=== PATIENT | female | born 1955 | race Caucasian/White ===

== ENCOUNTER 2017-07-05 11:01 | Inpatient (IN) ==
[~2017-07-05 11:01] MED LIST: Vancomycin 1,000 MG, Sodium Chloride IRRigation 1,000 ML IR ONE
[2017-07-05] MEDS ORDERED: *HR* Propofol 200 MG/20 ML VIAL IVP ONE (11:32)
[2017-07-05] MEDS ORDERED: Ondansetron 4 MG/2 ML VIAL ONE ×2 (11:33→18:21)
[2017-07-05] MEDS ORDERED: *HR* Midazolam HCl 2 MG/2 ML VIAL ONE (11:33)
[2017-07-05] MEDS ORDERED: *HR* Rocuronium Bromide 50 MG/5 ML VIAL ONE (11:33)
[2017-07-05] MEDS ORDERED: *HR* FentaNYL (PF) 100 MCG/2 ML VIAL ONE ×2 (11:33→18:20)
[2017-07-05] MEDS ORDERED: Dexamethasone 4 MG/ML VIAL ONE (11:33)
[2017-07-05] MEDS ORDERED: Lidocaine -MPF 2% 2 ML VIAL ONE (11:33)
[2017-07-05] MEDS ORDERED: Water for inj. (sterile) 10 ML IV ONE (11:39)
[2017-07-05] MEDS ORDERED: Ringers Solution, Lactated 1,000 ML IVC SCH (11:45)
[2017-07-05] MEDS ORDERED: Albuterol 2.5 MG/3 ML NEBULIZER IH ONE (11:45)
[2017-07-05] MEDS ORDERED: Lidocaine -MPF 1% 2 ML VIAL ID ONE (11:45)
--- NOTE | 2017-07-05 11:46 | Anesthesia Evaluation PreOp ---
Date of Encounter: 07/05/17 Time of Encounter: 11:44 - Past History Planned Operation: right leg graft thrombectomy possible revision Cardiac History: [place], HTN, Hyperlipidemia, Cardiac Surgery (CABG x 3 2007), Cardiac Stent (x 5 prior to CABG), Other (PVD, denies current chest pain) Pulmonary History: Smoker RD PROJECT MANAGER History: CVA (s/p carotid stenosis), Other (back pain) Other Medical History: Diabetes Type II (122) Anesthesia History: No Prior Anesthetic Complications : No Alcohol Use: none Drug use: none Medications and Allergies Clopidogrel [Plavix] 75 mg PO DAILY 10/13/15 [History] Lisinopril [Zestril] 5 mg PO DAILY 10/13/15 [History] Metformin HCl [Glucophage] 1,000 mg PO BID 10/13/15 [History] Metoprolol XL (24 HR) Succ [Toprol Xl] 25 mg PO DAILY 10/13/15 [History] Oxycodone HCl/Acetaminophen [Percocet 10-325 mg Tablet] 1 tab PO TID PRN [History] Potassium Chloride [K-Tab ER] 10 meq PO DAILY 10/13/15 [History] Simvastatin [Zocor] 40 mg PO HS 10/13/15 [History] diazePAM [Valium] 10 mg PO BID PRN 10/13/15 [History] hydroCHLOROthiazide [Hydrochlorothiazide] 12.5 mg PO DAILY 10/13/15 [History] Amlodipine Besylate 10 mg PO DAILY 01/27/16 [History] Aspirin 81 mg PO DAILY 01/27/16 [History] Docusate [Colace] 100 mg PO BID PRN 01/27/16 [History] FluocinoNIDE 0.05% CRM [Lidex] 1 appl TP BID 01/27/16 [History] Gabapentin [Neurontin] 800 mg PO TID 01/27/16 [History] Insulin ASPART [Novolog Flexpen] 6 - 10 unit SQ TID MDD per sliding scale [History] Insulin Glargine,Hum.rec.anlog [Lantus Solostar] 35 unit SQ BID 01/27/16 [ History] Isosorbide MONOnitrate (24 HR) [Imdur] 30 mg PO DAILY 01/27/16 [History] Acetaminophen [Tylenol] 650 mg PO Q6HR PRN #0 tablet 01/29/16 [Rx] OxyCODONE Immed Rel [Roxicodone 5 MG] 5 mg PO Q4H PRN #40 tablet 01/29/16 [Rx] HYDROcodone/Acet 5/325 mg [[place] 5-325 mg] 1 tab PO Q6H PRN 3 Days #10 tab 06/11 [Rx] Oxycodone HCl/Acetaminophen [Percocet 5-325 mg Tablet] 1 each PO Q6H PRN 3 Days #12 tablet 07/03/17 [Rx] 3 Allergy/AdvReac Type Severity Reaction Status Date / Time Sulfa (Sulfonamide Allergy Hives Verified 11/10/15 17:29 Antibiotics) sulfamethoxazole Allergy Hives Verified 11/10/15 17:29 [From Bactrim] trimethoprim [From Bactrim] Allergy Hives Verified 11/10/15 17:29 - Meds/Allergy Pre-op Review Medications Reviewed: Yes Allergies Reviewed: Yes Beta Blockers on Current Med List: Yes If Beta Blockers taken, Date/Time (Last Dose taken): 07/05/2017 0830 Anesthesia Results - Labs Laboratory Tests 06/14/17 07/04/17 07/04/17 09:39 16:33 16:33 WBC 11.8 H Hgb 13.6 Hct 41.1 Plt Count 177 PT 10.5 INR 1.0 APTT 30.5 Sodium 137 Potassium 3.4 L Chloride 101 Carbon Dioxide 30 H BUN 10 Creatinine 0.70 Est GFR (Non-Af Amer) > 60 Glucose 80 Hemoglobin A1c 07/04/17 16:33 WBC Hgb Hct Plt Count PT INR APTT Sodium Potassium Chloride Carbon Dioxide BUN Creatinine Est GFR (Non-Af Amer) Glucose Hemoglobin A1c 9.9 H - Imaging EKG: report reviewed Additional studies: Stress 02/2017 Impression: Study quality is average. There is GI uptake obscuring portions of the inferior segments. Pharmacologic stress ECG is non-diagnostic for ischemia due to baseline ST-T changes and submaximal HR. Gated EF = 57%. Perfusion imaging was negative for ischemia or infarct. Anesthesia Exam Vital Signs/O2 Sat/Glucose, Most Current Temp Pulse Resp BP Pulse Ox 07/05/17 11:24 98.1 F 57 18 158/67 98 Height: 1.6 m Weight: 58 kg NPO (# of Hours): greater than 8 - HEENT Pupil (Motor): Pupils equal Mallampati: I Denture Type: Upper: Complete - RD PROJECT MANAGER RD PROJECT MANAGER Motor: Normal RUE, Normal LUE, Normal RLE, Normal LLE, Normal Face RD PROJECT MANAGER Sensory: Normal: RUE, LUE, RLE, LLE, Face - Cardiac Rhythm: Regular Murmur: None - Pulmonary Breath Sounds: bilateral Clear Anesthesia Assess/Plan ASA Score: 3 Modified [place] Scale for Level of Consciousness: Cooperative, oriented, and tranquil Anesthetic Plan: General Monitoring Plan: Standard Monitors Recovery Plan: PACU
[2017-07-05] MEDS ORDERED: CeFAZolin Syr 2,000MG/20 ML 2,000 MG/20 ML SYRINGE IVPB ONE (11:50)
[2017-07-05] MEDS ORDERED: *HR* Heparin 5,000 UNIT/ML VIAL ONE ×2 (12:00→16:31)
[2017-07-05] MEDS ORDERED: *HR* Promethazine 25 MG/ML VIAL IVP PRN ×2 (12:30)
[2017-07-05] MEDS ORDERED: *HR* HYDROmorphone (PF) 1 MG/ML SYRINGE IVP PRN (12:30)
[2017-07-05] MEDS ORDERED: *HR* Meperidine 25 MG/ML SYRINGE IVP PRN (12:30)
[2017-07-05] MEDS ORDERED: *HR* Labetalol 20 MG/4 ML SYRINGE IVP PRN ×2 (12:30→19:58)
[2017-07-05] MEDS ORDERED: Ondansetron 4 MG/2 ML VIAL IVP ONE ×2 (12:30)
[2017-07-05] MEDS ORDERED: Dexamethasone 4 MG/ML VIAL IVP ONE (12:30)
[2017-07-05] MEDS ORDERED: Famotidine 20 MG/2 ML VIAL IVP ONE (12:35)
[2017-07-05] MEDS ORDERED: Acetaminophen IV 1,000 MG/100 ML INFUS..BTL IVPB ONE (12:35)
[2017-07-05] MEDS ORDERED: Gabapentin 300 MG CAPSULE PO ONE (12:35)
[2017-07-05] MEDS ORDERED: Heparin 1,000 UNITS/500 mL 1,000 ML ONE (13:54)
[2017-07-05] MEDS ORDERED: Vancomycin 1,000 MG VIAL ONE ×2 (13:54→17:59)
--- NOTE | 2017-07-05 14:19 | History & Physical Report ---
Date of Encounter: 07/05/17 Time of Encounter: 14:00 24 Hour HP Update - Instructions Instructions: If the History and Physical is less than 30 days old and was completed prior to A.M. admission and or procedure and has NOT been updated on calendar day of procedure please complete this update prior to performing procedure. - Update Patient reports changes in Medical Condition: No Changes in examination, assessment, or condition: No Changes in Medication: No Preop tests/diagnostics Reviewed: Yes Surgery Remains Indicated: Yes Consent for Planned Operative Procedure(s) Verified: Yes - Pre-Operative Checklist Preoperative Checklist Indicated: Yes Prophylactic Antibiotic Ordered: Yes (Vancomycin due to MRSA risk) Home Medications Include Beta Puma: Yes Beta Puma Taken Today (Day of Surgery): Yes Beta Puma Taken Yesterday (Day Prior to Surgery): Yes Is VTE Prophylaxis Indicated?: Yes
[2017-07-05] MEDS ORDERED: EPHEDrine 50 MG/ML VIAL ONE (14:54)
[2017-07-05] MEDS ORDERED: Neostigmine Methylsulfate 3 MG/3 ML SYRINGE ONE (18:20)
--- NOTE | 2017-07-05 18:38 | Operative Note ---
Date of procedure: 07/05/17 Pre-op diagnosis: Peripheral vascular disease with ulceration Post-op diagnosis: same Procedure: 1. Right lower lower extremity thrombectomy. 2. Reoperative right femoral to below knee popliteal artery bypass with 6mm PTFE Distaflo mini-cuff graft. 3. Right tibioperoneal trunk and anterior tibial endarterectomy. Complications: None Anesthesia: GETA Surgeon: Maxi Simmons Was there an malt specifications control assistant present: No Estimated blood loss (cc): 200 Specimen: Right lower extremity plaque Condition: stable Disposition: PACU Procedure in Detail: Indications: The patient is a 61 year old female with a history of hyperlipidemia, hypertension, diabetes and tobacco abuse. She also has a history of peripheral vascular disease with disabling ulceration. She previously underwent a right femoral to above knee popliteal artery bypass for a right superficial femoral artery occlusion. Her symptoms resolved after the procedure. She recently presented to the emergency room with right lower extremity ulcerations and was found have an occluded bypass graft. She declined admission at that time but then followed up in clinic. A graftotomy was recommended to reduce her risk of limb loss and alleviate her symptoms. Procedure: The patient was identified in the preoperative area. The risks, benefits and alternatives were discussed and all questions were answered. The patient was taken to the operating room and placed in the supine position on the operating room table. After the induction of general endotracheal anesthesia, the patient was cleaned and draped in the normal sterile fashion. A longitudinal incision was made sharply through her previous right medial thigh scar overlying the femoral vessels. Hemostasis was obtained with electrocautery. Through a process of blunt, sharp and electrocautery dissection , the proximal and distal above-knee popliteal artery was dissected and surrounded with vessel loops. The graft was also dissected and surrounded with vessel loops. The patient received a 5000 unit bolus of heparin. After waiting adequate time or the heparin to circulate, the vessels were occluded with the vessel loops. A longitudinal graftotomy was made through the graft anastamosis and extended proximally into the [place] artery distally. No flow was noted on release of the loops. A 4 beninese marilee catheter was passed proximally into the aorta and inflated. It was withdrawn and some acute thrombus and chronic thrombotic material was retrieved. This was sent to pathology. Brisk pulsatile flow was noted at this time. Additional passes of the catheter resulted in no additional thrombus or embolus proximally. A 4 beninese marilee catheter was passed distally but would not pass beyond 10 cm because a firm obstruction was encountered. This finding was consistent with an atherosclerotic occlusion distally. An incision was made on the right medial calf sharply. Hemostasis was obtained with electrocautery. Through a process of blunt, sharp, and electrocautery dissection, the right below-knee popliteal artery was dissected proximally and distally and surrounded with vessel loops. A graft was tunneled between the above-knee popliteal and below-knee popliteal incisions. Additional heparin was given intravenously. The below-knee popliteal vessels were occluded and a longitudinal arteriotomy was made in the popliteal artery. The distal end of the graft was sutured in place with a running 6-0 Prolene, but not tied. Heparinized saline was infused into the lumen. Tension was applied to the above-knee popliteal vessel loops. The old graft was transected from the anastomosis. The anastomosis was oversewn with 3- 0 Prolene. The new bypass graft was cut to fit the appropriate length and anastamosed with a running 6-0 Prolene to the distal end of the original graft. The vessels were flushed through the graft and heparin was infused into the lumen. The new graft graft was clamped with an atraumatic clamp. Thrombin and gelfoam were used at the proximal anastamosis. The distal arterial anastomosis suture line was completed. Prior to completing the closure, the popliteal vessels were flushed and reoccluded. Heparinized saline was infused into the lumen. The anastamosis was tied and then flow was restored. Polyphasic signals were noted distal to the distal anastomosis, but no signals could be identified in the posterior tibial or anterior tibial vessels. The Doppler was then placed at the origin of the anterior tibial artery and high resistance flow was noted. The anterior tibial vein was then elevated clamped divided and oversewn. The origin of the anterior tibial artery and entire tibioperoneal trunk were exposed circumferentially and vessel loops were passed around the vessels. A longitudinal arteriotomy was extended distal to the graft through the anterior tibial artery and onto the tibial peroneal trunk. Significant thrombus and plaque were noted to be present. An endarterectomy was then performed on the origin of the anterior tibial artery as well as on the proximal tibioperoneal trunk. Endpoints were inspected and no elevated flaps were noted. The graft was then flushed through the arteriotomy vigorous pulsatile flow was noted. Heparinized saline was infused into the lumen. Retrograde flow was noted through the anterior tibial and tibioperoneal trunk arteries. The arteriotomy was reapproximated. Flow was restored through the graft and vessels. Polyphasic signals were then present in the anterior tibial artery as well as in the posterior tibial artery. 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 The wounds were irrigated with antibiotic-containing saline. Thrombin and gelfoam were used to aid in hemostasis. Platelet rich and platelet poor plasma were infused into the wounds. Meticulous hemostasis was obtained throughout the wound with electrocautery. Wounds were reapproximated with layers of 2-0 and 3- 0 Vicryl. Skin was reapproximated with 3-0 Monocryl. Sterile dressing was applied. The patient was then extubated and taken to recovery room in stable condition.
[2017-07-05] MEDS: *HR* HYDROmorphone (PF) 1 MG/ML SYRINGE IVP PRN ×4 (18:58→19:24)
--- NOTE | 2017-07-05 19:54 | Anesthesia Evaluation Post Op ---
Date of Encounter: 07/05/17 Time of Encounter: 19:53 - Vital Signs Vital Signs: Last Vital Signs Temp 98.3 F 07/05/17 19:40 Pulse 58 07/05/17 19:40 Resp 18 07/05/17 19:40 BP 106/48 07/05/17 19:40 Pulse Ox 100 07/05/17 19:40 - Lungs Lungs: Clear Ascult./Percussion - Airway Airway: Non-obstructed - Cardiovascular Regular Rate - Mental Status Mental Status: Alert & Oriented, Answers Appropriately - Pain Pain Scale: 2 - Nausea Vomiting Nausea Vomiting: Not Present - Hydration Hydration: NPO - Discharge PostOp Status: Transfer Patient to floor
[2017-07-05] MEDS ORDERED: Naloxone 0.4 MG/ML INJ IVP PRN (19:58)
[2017-07-05] MEDS ORDERED: 0.9 % Sodium Chloride 1,000 ML IVC SCH (19:58)
[2017-07-05] MEDS ORDERED: Nitroglycerin 0.4 MG TAB.SUBL SL PRN (19:58)
[2017-07-05] MEDS ORDERED: Acetaminophen 325 MG TABLET PO PRN (19:58)
[2017-07-05] MEDS ORDERED: Ondansetron 4 MG/2 ML VIAL IVP PRN (19:58)
[2017-07-05] MEDS ORDERED: *HR* HYDROcodone/Acet 5/325 mg TABLET PO PRN (19:58)
[2017-07-05] MEDS ORDERED: *HR* OxyCODONE Immed Rel 5 MG TABLET PO PRN (19:58)
[2017-07-05] MEDS ORDERED: OXYCODONE Oral CONC 10 MG/0.5 ML ORAL.SYG SL PRN ×2 (19:58)
[2017-07-05] MEDS: amLODIPine 5 MG TABLET PO SCH (20:38)
[2017-07-05] MEDS: Gabapentin 300 MG CAPSULE PO SCH (21:36)
[2017-07-05] MEDS: CeFAZolin Pre 2,000 MG/100 ML 2,000 MG/100 ML BAG IVPB SCH (22:37)
[2017-07-06] MEDS: *HR* Metoprolol 5 MG/5 ML VIAL IVP SCH ×2 (00:01→05:43)
[2017-07-06] MEDS ORDERED: Vancomycin 1,000 MG in D5% in Water 250 ML IVPB ONE (00:30)
[2017-07-06 04:43] LABS: Basophils % 0.2 %; Hematocrit 33.1 % (35.3-44.9); Hemoglobin 10.6 g/dL (11.5-15.4); Immature Granulocytes % 0.5 % (0-4); Lymphocytes # 1.1 K/mcL (0.6-4.6); Lymphocytes % 6.1 %; Mean Corpuscular Hemoglobin 28.3 pg (28.0-33.3); Mean Corpuscular Volume 88.3 fL (83.0-100.0); Mean Platelet Volume 11.8 fL (9.4-12.4); Monocytes # 0.9 K/mcL (0.0-1.3); Monocytes % 4.9 %; Neutrophils # 16.2 K/mcL (1.6-8.9); Platelet Count 150 K/mcL (140-400); Red Blood Count 3.75 M/mcL (3.82-4.97); Red Cell Distribution Width 14.4 % (11.5-14.5); Segmented Neutrophils % 88.3 %
[2017-07-06 05:06] LABS: BUN/Creatinine Ratio 21 (6-26); Blood Urea Nitrogen 12 mg/dL (6-20); Calcium 8.5 mg/dL (8.6-10.3); Carbon Dioxide 23 mEq/L (23-29); Chloride 105 mEq/L (98-107); Glucose 336 mg/dL (70-105); Osmolality,Calculated 291 (280-300); Potassium 3.7 mEq/L (3.5-5.1); Sodium 134 mEq/L (136-145); eGFR For African Americans > 60 (> 60); eGFR For Non-African Americans > 60 (> 60)
[2017-07-06] MEDS: CeFAZolin Pre 2,000 MG/100 ML 2,000 MG/100 ML BAG IVPB SCH (05:45)
[2017-07-06] MEDS ORDERED: *HR* Heparin 5,000 UNIT/ML VIAL SQ SCH ×2 (06:00)
--- NOTE | 2017-07-06 06:27 | Discharge Summary ---
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 Her wounds are healing well without any erythema or drainage. Her ulcers are persistent but have no signs or symptoms of infection this time. She is afebrile. She has polyphasic pedal signals. She will be discharged today. (2) Essential hypertension Priority: Secondary Status: Acute Comments: She was counseled regarding atherosclerotic risk factor reduction. (3) Chronic kidney disease, stage III (moderate) Priority: Secondary Status: Acute (4) Tobacco abuse Priority: Secondary Status: Chronic Comments: She was counseled regarding smoking cessation. (5) Diabetes mellitus with peripheral angiopathy without gangrene Priority: Secondary Status: Chronic Qualifiers: Diabetes mellitus type: type 2 Diabetes mellitus intermodal truck driver insulin use: unspecified intermodal truck driver insulin use status Qualified Code(s): E11.51 - Type 2 diabetes mellitus with diabetic peripheral angiopathy without gangrene (6) Hyperlipemia, mixed Priority: Secondary Status: Chronic (7) Anemia associated with acute blood loss Priority: Secondary Status: Acute Comments: The patient has acute expected postoperative blood loss anemia. She is hemodynamically stable without evidence of ongoing blood loss. - Hospital Course Hospital course: Ms. Arambula is a 61 year old female with history of hypertension, hyperlipidemia , diabetes and tobacco abuse. The patient has a history of peripheral vascular disease with ulceration. The patient is previously undergone a right femoral to below-knee popliteal artery bypass. The graft was found to be occluded. She underwent a graft thrombectomy within a reoperative right femoral to below knee popliteal artery bypass. She tolerated the procedure well and was discharged home in stable condition on postoperative day #1 without medications. Time spent discussing smoking cessation with patient: 3 to 10 minutes - Time Spent with Patient Total time spent providing and/or coordinating discharge services: - Discharge Medications Home Medications: Amlodipine Besylate 5 mg PO BID 07/05/17 [History] Aspirin [Lo-Dose Aspirin EC] 81 mg PO DAILY 07/05/17 [History] Clopidogrel [Plavix] 75 mg PO DAILY 07/05/17 [History] Docusate Sodium [Stool Softener] 100 mg PO BID 07/05/17 [History] Gabapentin [Neurontin] 900 mg PO TID 07/05/17 [History] Insulin ASPART [Novolog Flexpen] 6 - 10 unit SQ TIDWM 07/05/17 [History] Insulin Glargine,Hum.rec.anlog [Basaglar Kwikpen U-100] 35 unit SQ BID 07/05/17 [History] Isosorbide MONOnitrate (24 HR) [Imdur] 30 mg PO DAILY 07/05/17 [History] Lisinopril [Zestril] 5 mg PO DAILY 07/05/17 [History] Metformin HCl 1,000 mg PO BID 07/05/17 [History] Metoprolol XL (24 HR) Succ [Toprol Xl] 25 mg PO DAILY 07/05/17 [History] Nitroglycerin [Nitrostat] 0.4 mg PO Q5M PRN 07/05/17 [History] Potassium Chloride [Klor-Con 10] 10 meq PO DAILY 07/05/17 [History] Simvastatin [Zocor] 40 mg PO HS 07/05/17 [History] hydroCHLOROthiazide [Hydrochlorothiazide] 12.5 mg PO DAILY 07/05/17 [History] Ibuprofen [Motrin] 600 mg PO TID PRN #90 tab 07/10/17 [Rx] OxyCODONE/APAP 10/325 [Percocet 10/325 MG] 1 each PO Q4HR PRN 7 Days #40 tablet 07/10/17 [Rx] Allergies/Adverse Reactions: 3 Allergy/AdvReac Type Severity Reaction Status Date / Time Penicillins [PCN] Allergy See Verified 07/09/17 20:19 Comments Sulfa (Sulfonamide Allergy Hives Verified 07/09/17 20:19 Antibiotics) sulfamethoxazole Allergy Hives Verified 07/09/17 20:19 [From Bactrim] trimethoprim [From Bactrim] Allergy Hives Verified 07/09/17 20:19 Date of admission: 07/05/2017 Primary care physician: Alex Orozco MD Procedure(s) Performed: Right lower extremity thrombectomy, reoperative right femoral to below-knee popliteal artery bypass, right tibial endarterectomy. Discharging clinician: Maxi Simmons Anticipated date of discharge: 07/06/17 Exam Vital Signs, Last 4 Hours Temp Pulse Resp BP Pulse Ox 07/06/17 04:00 67 148/64 07/06/17 03:13 97.7 F 64 16 149/59 95 07/06/17 03:00 63 149/59 General: Present: Conversant Cardiac: Present: Reg Rate and Rhythm Lungs: Present: Normal Breath Sounds Neuro: Present: Alert and responsive, Motor nerves grossly intact, Sensory nerves grossly intact Abdomen: Present: Soft Vascular: Present: Normal capillary refill, Surgical incisions (No hematoma, incisions clean, dry and intact without erythema or drainage), Other (Pedal signals present bilaterally) Skin: Present: No rashes noted on visualized skin - Patient Status Disposition: Home, Self-Care Condition: Good Functional capacity at discharge: independent ambulation Overall status at discharge: patient is back to baseline - Discharge Instructions Instructions: Oxycodone/Acetaminophen (By mouth), Femoropopliteal Bypass (DC), Peripheral Vascular Disorders (DC), Surgical Site Infections (GEN) Follow Up With: Alex Orozco MD [Primary Care Provider] - 07/12/17 9:45 am Maxi Simmons MD [Partnered Physician] - 08/06/17 3:20 pm Additional Instructions: May remove bandage and shower on 07/07/2017. Wash wound gently and pat to dry. Applied dry gauze to wounds daily for 7 days. No tub baths or swimming for [address] Simmons at [phone] with questions or concerns.
[2017-07-06 06:41] VITALS: BP 127/53
[2017-07-06] MEDS: amLODIPine 5 MG TABLET PO SCH (08:39)
[2017-07-06] MEDS: Gabapentin 300 MG CAPSULE PO SCH (08:40)
[2017-07-06] MEDS ORDERED: Aspirin Enteric Coated 81 MG Tablet PO SCH (09:00)
[2017-07-06] MEDS ORDERED: Metoprolol XL (24 HR) Succ 25 MG TAB.ER.24H PO SCH (09:00)
[2017-07-06] MEDS ORDERED: hydroCHLOROthiazide 25 MG TABLET PO SCH (09:00)
== END 2017-07-06 10:21 | disposition home or self-care (01) | DRG 181 ==
LOC: SAMDAY 11:01 → 2NNU 14:19
PROVIDERS: ADMIT Surgery; ATTEND Surgery

== ENCOUNTER 2017-07-09 20:17 | Observation (INO) ==
--- NOTE | 2017-07-09 21:00 | Emergency Department Note ---
Disposition Clinical Impression: Lower extremity edema, Occlusion of arterial bypass graft, Ischemia of right lower extremity Lower extremity pain Qualifiers: Laterality: right Qualified Code(s): M79.604 - Pain in right leg Disposition: Admitted As Inpatient Condition: Serious Referrals: Alex Orozco MD [Primary Care Provider] - Forms: ED Satisfaction Letter Time of Disposition: 01:02 Extremity Problem HPI - General Chief complaint: ED Extremity Problem,Nontraumatic Stated complaint: right leg swelling post "artery bypass" Source: patient Mode of arrival: private vehicle Limitations: no limitations Nursing Notes Reviewed: Yes Vital Signs Reviewed: Yes - History of Present Illness HPI Narrative: 61 yo F c PMHx of CVA, diabetes, hyperlipidemia, hypertension, myocardial infarction, peripheral artery disease, angioplasty/stent, carotid endarterectomy , coronary bypass (CABG), hysterectomy, vascular surgery reports to the ED c/o Sudden onset of pain and swelling in RLE x 1 day. Patient is POD 4 s/p Right lower lower extremity thrombectomy, Reoperative right femoral to below knee popliteal artery bypass with 6mm PTFE Distaflo mini-cuff graft, andRight tibioperoneal trunk and anterior tibial endarterectomy with Dr. Simmons on . She reports she had some improvement post surgery but then last night she began having pain in RLE. She reports that it feels swollen and has a burning sensation on her german. She reports she is unable to bear weight or move toes without pain. She has chronic numbness and tingling in R foot. She called Dr. Simmons who advised her to come into the ED. Patient denies Chest Pain, SOB, Abdominal Pain, Fever, Nausea, Vomiting, Diarrhea. Pt Subjective Complaint: extremity pain, extremity swelling, cold extremity Onset (ago): day(s) Consistency: constant Injury Location: right Pain Scale: 10 Quality: burning Radiation: distal Improves with: nothing Worsens with: range of motion, weight bearing, palpation Associated symptoms: Reports: swelling. Denies: chest pain, shortness of breath , abdominal pain, fever Context: recent surgery/procedure - Related Data Home Medications Medication Instructions Recorded Confirmed Amlodipine Besylate 5 mg PO BID 07/05/17 07/05/17 Aspirin [Lo-Dose Aspirin EC] 81 mg PO DAILY 07/05/17 07/05/17 Clopidogrel [Plavix] 75 mg PO DAILY 07/05/17 07/05/17 Docusate Sodium [Stool Softener] 100 mg PO BID 07/05/17 07/05/17 Gabapentin [Neurontin] 900 mg PO TID 07/05/17 07/05/17 Insulin ASPART [Novolog Flexpen] 6 - 10 unit SQ TIDWM 07/05/17 07/05/17 Insulin Glargine,Hum.rec.anlog 35 unit SQ BID 07/05/17 07/05/17 [Basaglar Kwikpen U-100] Isosorbide MONOnitrate (24 HR) 30 mg PO DAILY 07/05/17 07/05/17 [Imdur] Lisinopril [Zestril] 5 mg PO DAILY 07/05/17 07/05/17 Metformin HCl 1,000 mg PO BID 07/05/17 07/05/17 Metoprolol XL (24 HR) Succ [Toprol 25 mg PO DAILY 07/05/17 07/05/17 Xl] Nitroglycerin [Nitrostat] 0.4 mg PO Q5M PRN 07/05/17 07/05/17 Potassium Chloride [Klor-Con 10] 10 meq PO DAILY 07/05/17 07/05/17 Simvastatin [Zocor] 40 mg PO HS 07/05/17 07/05/17 hydroCHLOROthiazide 12.5 mg PO DAILY 07/05/17 07/05/17 [Hydrochlorothiazide] Previous Rx's Medication Instructions Recorded OxyCODONE/APAP 5/325 [Percocet 1 each PO Q6HR PRN 7 Days #25 07/06/17 5/325 MG] tablet Allergies Allergy/AdvReac Type Severity Reaction Status Date / Time Penicillins [PCN] Allergy See Verified 07/09/17 20:19 Comments Sulfa (Sulfonamide Allergy Hives Verified 07/09/17 20:19 Antibiotics) sulfamethoxazole Allergy Hives Verified 07/09/17 20:19 [From Bactrim] trimethoprim [From Bactrim] Allergy Hives Verified 07/09/17 20:19 All systems ED: reviewed and negative except as stated. Review of Systems: As Per HPI Past Medical History - Past Medical History Medical history: Reports: CVA, diabetes, hyperlipidemia, hypertension, myocardial infarction, peripheral artery disease, other Surgical history: Reports: angioplasty/stent, carotid endarterectomy, coronary bypass (CABG), hysterectomy, orthopedic, other, vascular surgery Psychiatric history: Reports: anxiety, depression - Social History Smoking Status: Current every day smoker Smokeless Tobacco Status: No Alcohol use: Reports: none Drug use: Reports: none Physical Exam - General Limitations: no limitations General appearance: alert, in no apparent distress - Head Head exam: atraumatic, normocephalic - Eye Eye exam: Present: PERRL, EOMI - ENT ENT exam: normal oropharynx, mucous membranes moist - Neck Neck exam: Present: full ROM, trachea midline - Chest Chest inspection: Present: symmetric chest wall rise. Absent: tenderness - Respiratory Respiratory exam: Present: normal lung sounds bilaterally. Absent: respiratory distress - Cardiovascular Cardiovascular exam: Present: regular rate, normal rhythm, normal heart sounds - Abdominal Exam Abdominal exam: Present: soft, Non-Tender, normal bowel sounds - Expanded Lower Extremity Exam Upper leg exam: Present: other (Patient with bandage covering recent surgical site. ) Lower leg exam: Present: tenderness, swelling, other (Patient with dressing covering recent surgery site) Neurovascular/Tendon exam: Present: pulse deficit, motor deficit, sensory deficit, extremity cold to touch - Neurological Exam Neurological exam: Present: alert, oriented X3 - Psychiatric Psychiatric exam: Present: normal affect, normal mood Course - Reevaluation(s) Reevaluation #1: I, Dr. oLpez, saw and evaluated the patient. I followed up her DVT Doppler result of which was negative for any venous system clot. We had to do an arterial ultrasound study of the right lower extremity and it shows a completely occluded arterial graft. I did speak with Dr. Simmons we will admit the patient now to his service. We did start her on IV heparin. Patient and family are updated. Pain control. - Consultations Consultation #1: Discussd case with patient's vascular surgeon Dr. Lutz. He states post opperative pain and swelling are very common post graft. Since PT pulse is intact he states this means the graft is open. He recommends a Venous doppler of lower extremeity and states if negative patient can be discharged home. Patient has follow up with Dr. Simmons scheduled for 07/23/17 and 08/06/17. Vital Signs Temperature 98.5 F 07/09/17 20:19 Pulse Rate 90 07/09/17 20:19 Respiratory Rate 16 07/09/17 20:19 Blood Pressure 156/69 07/09/17 20:19 O2 Sat by Pulse Oximetry 94 07/09/17 20:19 Temperature 98.5 F 07/09/17 21:41 Pulse Rate 85 07/09/17 23:26 Respiratory Rate 20 07/09/17 23:26 Blood Pressure 167/65 07/09/17 23:26 O2 Sat by Pulse Oximetry 94 07/09/17 23:26 Oxygen Delivery Oxygen Delivery Room Air Extremity Problem, Nontraumati - MDM Narrative Medical decision making narrative: Patient with swelling and pain s/p bypass grat surgery of RLE. Differential is post opperative pain/swelling, DVT, and compartment syndrome. Pending Doppler study will dispo. - Differential Diagnosis Likely: deep venous thrombosis, lower extremity edema, compartment syndrome, arterial vascular disorder Critical Care Time Critical Care Time: Yes Total Critical Care Time: 45 Attestation: Critical care time of 45 minutes spent in medical management of right lower extremity clot of the arterial system as well as consult with vascular surgery
--- NOTE | 2017-07-09 22:05 | Emergency Department Note ---
START Narrative - START START: I examined this patient and my medical decision-making was reviewed with the Resident Physician. I agree with the documented findings, disposition and treatment plan as described except to the extent set forth below. 61-year-old female presented to the emergency room for right lower extremity swelling. Patient had a Terrio bypass done in this right lower extremity by vascular surgery approximate 4 days ago. She presents to the ER today for increasing swelling to the right lower leg. He reverted to Doppler a pulse at bedside and the posterior tibial region. We spoke with vascular surgery who wanted us to do a Doppler to rule out any DVT. We have ordered that. Disposition is pending.
[2017-07-09] MEDS ORDERED: *HR* OxyCODONE/APAP 5/325 TABLET PO ONE (22:38)
[2017-07-10] MEDS ORDERED: *HR* Heparin 5,000 UNIT/ML VIAL IVP ONE (00:59)
[2017-07-10] MEDS ORDERED: *HR* Heparin 5,000 UNIT/ML VIAL IVP PRN ×2 (00:59)
[2017-07-10] MEDS ORDERED: *HR* FentaNYL (PF) 100 MCG/2 ML VIAL IVP ONE (00:59)
[2017-07-10] MEDS ORDERED: Heparin 25,000 UNIT/500 ML D5W 25,000 UNIT/500 ML BAG IVC SCH (01:00)
[2017-07-10 02:22] LABS: Hematocrit 27.8 % (35.3-44.9); Hemoglobin 9.7 g/dL (11.5-15.4); Mean Corpuscular HGB Conc 34.9 g/dL (31.6-35.5); Mean Corpuscular Hemoglobin 29.7 pg (28.0-33.3); Mean Platelet Volume 11.1 fL (9.4-12.4); Platelet Count 178 K/mcL (140-400); Red Blood Count 3.27 M/mcL (3.82-4.97); Red Cell Distribution Width 13.6 % (11.5-14.5)
[2017-07-10 02:28] LABS: Prothrombin Time 10.9 Seconds (9.4-12.1)
[2017-07-10] MEDS ORDERED: *HR* OxyCODONE/APAP 5/325 TABLET PO PRN (04:04)
[2017-07-10] MEDS ORDERED: *HR* OxyCODONE Immed Rel 5 MG TABLET PO PRN (09:20)
[2017-07-10] MEDS ORDERED: Ketorolac 30 MG/ML VIAL IVP ONE (09:21)
[2017-07-10] MEDS: *HR* OxyCODONE/APAP 10/325 TABLET PO PRN ×2 (09:32→13:12)
--- NOTE | 2017-07-10 09:32 | Vascular/Endovascular H&P ---
Date of Encounter: 07/10/17 Time of Encounter: 07:50 Assessment and Plan (1) Lower extremity pain Status: Acute The patient is recently undergone a right femoral to below-knee popliteal artery bypass with a right graft thrombectomy. She was in the ER with worsening right lower extremity pain. She reported inadequate pain relief with her current postoperative pain regimen. She reports improvement of her symptoms since receiving oral analgesics. Her Percocet will be increased and she will be given Toradol. She has postoperative expected edema. Her venous duplex reveals no evidence of deep venous thrombosis or superficial phlebitis. She was encouraged to elevate her legs when seated. She will be reassessed later in the afternoon. Her duplex revealed an occlusion of her graft. She does have biphasic pedal signals as well as intact sensation and motor function. At this time there is no indication for acute intervention. Patient states that she wishes to go home today. If her pain can be adequately controlled she will be discharged to home and follow-up in clinic next week. 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 Arambula is a 61 year old female with hypertension, hyperlipidemia, diabetes, tobacco abuse to improve vascular disease with ulceration. The patient recently underwent a reoperative right femoral to below-knee popliteal artery bypass. She was discharged in stable condition. The patient presented to emergency room last night with complaints of intractable pain in the right lower extremity. She underwent venous and arterial studies. She does have a recurrent graft occlusion. She reports that since arrival she has had improved pain control and dissection feeling better this morning. She denies any rest pain. Chest or shortness breath. Past Med Surg Social Fam HX - Past Medical History Medical history: CVA, diabetes, hyperlipidemia, hypertension, myocardial infarction, peripheral artery disease, other Psychiatric history: anxiety, depression - Past Surgical History Surgical History: angioplasty/stent, carotid endarterectomy, coronary bypass ( CABG), hysterectomy, orthopedic, other, vascular surgery - Social History Smoking Status: Current every day smoker Smokeless Tobacco Status: No Alcohol use: none Drug use: none - Family History Mother Hx Family Cardiac Disorders: Yes Hx Family Cancer: Yes Hx Family Endocrine Disorder: Yes Sister Hx Family Cardiac Disorders: Yes Hx Family Endocrine Disorder: Yes Medications and Allergies Amlodipine Besylate 5 mg PO BID 07/05/17 [History] Aspirin [Lo-Dose Aspirin EC] 81 mg PO DAILY 07/05/17 [History] Clopidogrel [Plavix] 75 mg PO DAILY 07/05/17 [History] Docusate Sodium [Stool Softener] 100 mg PO BID 07/05/17 [History] Gabapentin [Neurontin] 900 mg PO TID 07/05/17 [History] Insulin ASPART [Novolog Flexpen] 6 - 10 unit SQ TIDWM 07/05/17 [History] Insulin Glargine,Hum.rec.anlog [Basaglar Kwikpen U-100] 35 unit SQ BID 07/05/17 [History] Isosorbide MONOnitrate (24 HR) [Imdur] 30 mg PO DAILY 07/05/17 [History] Lisinopril [Zestril] 5 mg PO DAILY 07/05/17 [History] Metformin HCl 1,000 mg PO BID 07/05/17 [History] Metoprolol XL (24 HR) Succ [Toprol Xl] 25 mg PO DAILY 07/05/17 [History] Nitroglycerin [Nitrostat] 0.4 mg PO Q5M PRN 07/05/17 [History] Potassium Chloride [Klor-Con 10] 10 meq PO DAILY 07/05/17 [History] Simvastatin [Zocor] 40 mg PO HS 07/05/17 [History] hydroCHLOROthiazide [Hydrochlorothiazide] 12.5 mg PO DAILY 07/05/17 [History] Ibuprofen [Motrin] 600 mg PO TID PRN #90 tab 07/10/17 [Rx] OxyCODONE/APAP 10/325 [Percocet 10/325 MG] 1 each PO Q4HR PRN 7 Days #40 tablet 07/10/17 [Rx] 3 Allergy/AdvReac Type Severity Reaction Status Date / Time Penicillins [PCN] Allergy See Verified 07/09/17 20:19 Comments Sulfa (Sulfonamide Allergy Hives Verified 07/09/17 20:19 Antibiotics) sulfamethoxazole Allergy Hives Verified 07/09/17 20:19 [From Bactrim] trimethoprim [From Bactrim] Allergy Hives Verified 07/09/17 20:19 All Systems Review: The remainder of the systems were reviewed and are negative - Constitutional Constitutional: no chills, no fever(s) - Cardiovascular Cardiovascular: no chest pain at rest, no dyspnea at rest Exam Vital Signs, Last 4 Hours Temp Pulse Resp BP Pulse Ox 07/10/17 07:39 79 07/10/17 07:38 97 07/10/17 07:34 78 20 96 07/10/17 07:26 97.9 F 78 16 146/72 90 General: Present: Conversant, No Apparent Distress Cardiac: Present: Reg Rate and Rhythm Lungs: Present: Normal Breath Sounds Neuro: Present: Alert and responsive, No focal deficits noted, Motor nerves grossly intact, Sensory nerves grossly intact Abdomen: Present: Soft, Non-tender Vascular: Present: Normal capillary refill, Pulse, diminished (Right pedal signals are biphasic by Doppler), Pulse, normal (Lower extremity pedal pulses are normal), Edema (Trace edema in the right lower extremity), Surgical incisions (Incisions clean, dry and intact without erythema or drainage. No pulsatile masses). Absent: Cyanosis Skin: Present: Wound/ulcer(s) (Superficial ulcerations noted in the right foot) Results 07/10/17 02:00 Lab Results, Last 24 hours 07/10/17 07/10/17 02:00 02:00 WBC 17.2 H Hgb 9.7 L Hct 27.8 L Plt Count 178 INR 1.0 APTT 29.0 - Imaging / Other Tests Non Invasive Vascular Testing: report reviewed, image reviewed
--- NOTE | 2017-07-10 09:36 | Discharge Summary ---
Date of Encounter: 07/10/17 Time of Encounter: 14:00 - Discharge Diagnosis (1) Lower extremity pain Priority: Primary Status: Acute Comments: The patient has acute postoperative pain the right lower extremity after reoperative right femoral to popliteal artery bypass. She was treated with oral analgesics as well as intravenous Toradol. The patient reports that she is much better was to be discharged home. She was discharged with oxycodone and ibuprofen. She will follow-up in clinic next week for further evaluation. Qualifiers: Laterality: right Qualified Code(s): M79.604 - Pain in right leg (2) Lower extremity edema Priority: Secondary Status: Acute Comments: The patient complained of right lower extremity edema after her bypass. She underwent a venous duplex that was negative for deep vein thrombosis or superficial phlebitis. He is encouraged to elevate her leg when she is seated. 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 She has biphasic signals. Her sensory and motor exam are intact. His for acute intervention. She will follow-up in clinic next week. She is encouraged to seek medical attention if she has progressive symptoms of limb threatening ischemia. (4) Diabetes mellitus with peripheral angiopathy without gangrene Priority: Secondary Status: Chronic Qualifiers: Diabetes mellitus type: type 2 Diabetes mellitus local intermodal truck driver insulin use: unspecified intermediate insulin use status Qualified Code(s): E11.51 - Type 2 diabetes mellitus with diabetic peripheral angiopathy without gangrene (5) Hyperlipemia, mixed Priority: Secondary Status: Chronic (6) Tobacco abuse Priority: Secondary Status: Chronic (7) Unspecified essential hypertension Priority: Secondary Status: Chronic - Hospital Course Hospital course: Ms. Arambula is a 61 year old female was seen in the emergency room for intractable right lower extremity pain. The patient reports that she was taking increased doses of her postoperative pain medication. She ran out of pain medication early was seen in the emergency room. She was brought into the hospital for observation given oral intravenous pain medication. She underwent a venous duplex which revealed no evidence of deep vein thrombosis or superficial femoral phlebitis. She underwent vascular studies which revealed her graft reoccluded. Her symptoms improved with analgesics and she was ready for discharge in the afternoon. He was discharged home in stable condition. Time spent discussing smoking cessation with patient: 3 to 10 minutes - Time Spent with Patient Total time spent providing and/or coordinating discharge services: - Discharge Medications Prescriptions: OxyCODONE/APAP 10/325 [Percocet 10/325 MG] 1 each PO Q4HR PRN 7 Days #40 tablet PRN Reason: postoperative pain Ibuprofen [Motrin] 600 mg PO TID PRN #90 tab PRN Reason: pain and inflammation Home Medications: Amlodipine Besylate 5 mg PO BID 07/05/17 [History] Aspirin [Lo-Dose Aspirin EC] 81 mg PO DAILY 07/05/17 [History] Clopidogrel [Plavix] 75 mg PO DAILY 07/05/17 [History] Docusate Sodium [Stool Softener] 100 mg PO BID 07/05/17 [History] Gabapentin [Neurontin] 900 mg PO TID 07/05/17 [History] Insulin ASPART [Novolog Flexpen] 6 - 10 unit SQ TIDWM 07/05/17 [History] Insulin Glargine,Hum.rec.anlog [Basaglar Kwikpen U-100] 35 unit SQ BID 07/05/17 [History] Isosorbide MONOnitrate (24 HR) [Imdur] 30 mg PO DAILY 07/05/17 [History] Lisinopril [Zestril] 5 mg PO DAILY 07/05/17 [History] Metformin HCl 1,000 mg PO BID 07/05/17 [History] Metoprolol XL (24 HR) Succ [Toprol Xl] 25 mg PO DAILY 07/05/17 [History] Nitroglycerin [Nitrostat] 0.4 mg PO Q5M PRN 07/05/17 [History] Potassium Chloride [Klor-Con 10] 10 meq PO DAILY 07/05/17 [History] Simvastatin [Zocor] 40 mg PO HS 07/05/17 [History] hydroCHLOROthiazide [Hydrochlorothiazide] 12.5 mg PO DAILY 07/05/17 [History] Ibuprofen [Motrin] 600 mg PO TID PRN #90 tab 07/10/17 [Rx] OxyCODONE/APAP 10/325 [Percocet 10/325 MG] 1 each PO Q4HR PRN 7 Days #40 tablet 07/10/17 [Rx] Allergies/Adverse Reactions: 3 Allergy/AdvReac Type Severity Reaction Status Date / Time Penicillins [PCN] Allergy See Verified 07/09/17 20:19 Comments Sulfa (Sulfonamide Allergy Hives Verified 07/09/17 20:19 Antibiotics) sulfamethoxazole Allergy Hives Verified 07/09/17 20:19 [From Bactrim] trimethoprim [From Bactrim] Allergy Hives Verified 07/09/17 20:19 Date of admission: 07/10/17 01:09 Primary care physician: Alex Orozco MD Discharging clinician: Mxai Simmons Anticipated date of discharge: 07/10/17 Exam Vital Signs, Last 4 Hours Temp Pulse Resp BP Pulse Ox 07/10/17 07:39 79 07/10/17 07:38 97 07/10/17 07:34 78 20 96 07/10/17 07:26 97.9 F 78 16 146/72 90 - Patient Status Disposition: Left Against Medical Advice Condition: Serious - Discharge Instructions Instructions: Peripheral Vascular Disorders (DC) Follow Up With: Alex Orozco MD [Primary Care Provider] - 07/12/17 9:45 am Maxi Simmons MD [Partnered Physician] - 07/16/17 8:00 am
[2017-07-10 11:19] VITALS: BP 150/81
[2017-07-10] MEDS ORDERED: Ketorolac 15 MG/ML VIAL IVP PRN (15:21)
[2017-07-10] MEDS ORDERED: *HR* Heparin 5,000 UNIT/ML VIAL SQ SCH (18:00)
== END 2017-07-10 14:28 | disposition left against medical advice (07) ==
LOC: 2NNU 20:17 → EMEROO 20:17 → 2NNU 07-10 02:40
PROVIDERS: ADMIT Surgery; ATTEND Surgery